=== PATIENT | female | born 1970 | race Caucasian/White ===

== ENCOUNTER 2018-01-10 15:09 | Inpatient (IN) | payer OTHER ==
[2018-01-10] MEDS: SOD CHLORIDE 0.9% 1,000 ML IV (17:34)
[2018-01-10] MEDS: ONDANSETRON 4 MG INJ IV (17:34)
[2018-01-10] MEDS: KETOROLAC 15 MG INJ IV (17:34)
[2018-01-10 18:06] LABS: ADD MAN DIFF? NO
[2018-01-10 18:11] LABS: WHITE BLOOD COUNT 10.9 10^3/ul (4.8-10.8)
[2018-01-10 18:11] LABS: BASOPHIL # 0.1 10^3/ul (0.0-0.1); BASOPHILS % 0.6 % (0.0-2.0); EOSINOPHILS % 0.1 % (0.0-7.0); HEMATOCRIT 46.8 % (37.0-47.0); HEMOGLOBIN 15.6 g/dl (12.0-16.0); LYMPHOCYTES # 0.7 10^3/ul (0.8-2.9); LYMPHOCYTES % 6.3 % (15.0-51.0); MEAN CORPUSCULAR HEMOGLOBIN 37.3 pg (29.0-33.0); MEAN CORPUSCULAR HGB CONC 33.3 g/dl (32.0-37.0); MEAN PLATELET VOLUME 10.3 fl (7.4-10.4); MONOCYTE # 0.7 10^3/ul (0.3-0.9); MONOCYTES % 6.4 % (0.0-11.0); NEUTROPHILS % 82.2 % (39.0-77.0); NUCLEATED RED BLOOD CELLS% 0.4 /100WBC (0.0-0.0); PLATELET COUNT 232 10^3/UL (140-415); RED BLOOD COUNT 4.18 10^6/ul (4.20-5.40); RED CELL DISTRIBUTION WIDTH 12.5 % (11.5-14.5)
[2018-01-10 18:30] LABS: INR 1.05; PROTIME 13.8 Sec (11.9-14.9); PT RATIO 1.1
[2018-01-10 18:31] LABS: ADD UMIC YES; UR ASCORBIC ACID NEGATIVE (NEGATIVE); UR BILIRUBIN (Dip) NEGATIVE (NEGATIVE); UR BLOOD (Dip) 1+ mg/dL (NEGATIVE); UR CLARITY CLEAR (CLEAR); UR COLOR YELLOW (YELLOW); UR GLUCOSE (Dip) NEGATIVE (NEGATIVE); UR HYALINE CAST FEW /HPF (NONE SEEN); UR KETONES (Dip) 2+ mg/dL (NEGATIVE); UR LEUKOCYTE ESTERASE (Dip) NEGATIVE Leu/ul (NEGATIVE); UR NITRITE (Dip) NEGATIVE (NEGATIVE); UR RBC 0 /HPF (0-5); UR SPECIFIC GRAVITY (Dip) 1.014 (1.003-1.030); UR TOTAL PROTEIN (Dip) 2+ mg/dl (NEGATIVE); UR UROBILINOGEN (Dip) NEGATIVE (NEGATIVE); UR WBC 1 /HPF (0-5)
[2018-01-10 19:42] LABS: ALANINE AMINOTRANSFERASE 70 IU/L (13-69); ALBUMIN 5.6 g/dl (3.3-4.9); ALBUMIN/GLOBULIN RATIO 1.86; ALKALINE PHOSPHATASE 52 IU/L (42-121); ANION GAP 41 (8-16); ASPARTATE AMINO TRANSFERASE 71 IU/L (15-46); BILIRUBIN,INDIRECT 0.6 mg/dl (0-1.1); BILIRUBIN,TOTAL 0.6 mg/dl (0.2-1.3); BLOOD UREA NITROGEN 9 mg/dl (7-20); CALCIUM 8.3 mg/dl (8.4-10.2); CHLORIDE 99 mmol/L (97-110); CREATININE 0.97 mg/dl (0.44-1.00); GLUCOSE 226 mg/dl (70-220); LIPASE 179 U/L (23-300); SODIUM 142 mmol/L (135-144); TOTAL PROTEIN 8.6 g/dl (6.1-8.1)
[2018-01-10 19:44] LABS: CARBON DIOXIDE 6 mmol/L (21-31)
[2018-01-10 19:45] LABS: POTASSIUM 4.3 mmol/L (3.5-5.1)
[2018-01-10] MEDS ORDERED: SODIUM CHLORIDE 23.4% 77 MEQ, POTASSIUM CHLORIDE 30 MEQ in DEXTROSE 10% 1,000 ML IV (19:53)
[2018-01-10] MEDS ORDERED: POTASSIUM CHLORIDE 30 MEQ in SOD CHLORIDE 0.9% 1,000 ML IV (19:53)
[2018-01-10 19:54] LABS: TROPONIN-I < 0.010 ng/ml (0.000-0.120)
[2018-01-10] MEDS ORDERED: DEXTROSE 50% 50 ML SYRINGE IV (20:00)
[2018-01-10 21:35] LABS: MODE ROOM AIR; MetHgb Venous 0.2 %; Sample Type Blood venous; Site VENOUS LINE; Venous COHb 0.3 %; Venous Oxygen Sat 64.3 mmHG (55.0-75.0); Venous Total Hemglobin 14.9 g/dl
[2018-01-10 21:47] LABS: LACTIC ACID 2.1 mmol/L (0.5-2.0)
[2018-01-10] MEDS: INSULIN REGULAR, HUMAN 100 UNIT in SOD CHLORIDE 0.9% 100 ML IV (22:04)
[2018-01-10] MEDS: SODIUM CHLORIDE 23.4% 77 MEQ, POTASSIUM CHLORIDE 30 MEQ in DEXTROSE 10% 1,000 ML IV (22:05)
[2018-01-10] MEDS: POTASSIUM CHLORIDE 30 MEQ in SOD CHLORIDE 0.9% 1,000 ML IV (22:05)
[2018-01-10] MEDS: SODIUM CHLORIDE 0.9% 1L BAG IV* (22:06)
[2018-01-10 22:36] LABS: ANION GAP 38 (8-16); BLOOD UREA NITROGEN 10 mg/dl (7-20); CALCIUM 8.5 mg/dl (8.4-10.2); CHLORIDE 100 mmol/L (97-110); CREATININE 0.96 mg/dl (0.44-1.00); GLUCOSE 194 mg/dl (70-220); MAGNESIUM 1.7 mg/dl (1.7-2.5); PHOSPHORUS 4.3 mg/dl (2.5-4.9); POTASSIUM 3.8 mmol/L (3.5-5.1); SODIUM 141 mmol/L (135-144)
[2018-01-10 22:38] LABS: CARBON DIOXIDE 7 mmol/L (21-31)
[2018-01-10 22:49] LABS: ACETAMINOPHEN < 10.0 ug/ml (10.0-30.0)
[2018-01-10 22:49] LABS: ETHANOL < 10.0 mg/dl; SALICYLATE < 1.0 mg/dl (5.0-30.0)
[2018-01-10] MEDS: CEFTRIAXONE 1 GM/50 ML (PMX) 50 ML IVPB (23:53)
[2018-01-11 00:24] LABS: ANION GAP 31 (8-16); BLOOD UREA NITROGEN 10 mg/dl (7-20); CALCIUM 8.1 mg/dl (8.4-10.2); CARBON DIOXIDE 11 mmol/L (21-31); CHLORIDE 101 mmol/L (97-110); CREATININE 0.92 mg/dl (0.44-1.00); GLUCOSE 266 mg/dl (70-220); MAGNESIUM 1.6 mg/dl (1.7-2.5); PHOSPHORUS 2.8 mg/dl (2.5-4.9); POTASSIUM 3.7 mmol/L (3.5-5.1); SODIUM 139 mmol/L (135-144)
[2018-01-11] MEDS: ONDANSETRON 4 MG INJ IV ×3 (00:24→13:39)
[2018-01-11 01:23] LABS: MODE ROOM AIR; MetHgb Venous 0.3 %; Sample Type Blood venous; Site VENOUS LINE; Venous COHb 0.3 %; Venous Fraction OxyHgb 45.2 %; Venous Oxygen Sat 45.5 mmHG (55.0-75.0); Venous Total Hemglobin 13.3 g/dl
[2018-01-11] MEDS ORDERED: POTASSIUM CHLORIDE 30 MEQ in SOD CHLORIDE 0.9% 1,000 ML IV ×2 (01:26→04:08)
[2018-01-11] MEDS ORDERED: SODIUM CHLORIDE 23.4% 77 MEQ, POTASSIUM CHLORIDE 40 MEQ in DEXTROSE 10% 1,000 ML IV (01:26)
[2018-01-11] MEDS: DEXTROSE 5%-0.45% NACL 1,000 ML IV (01:26)
[2018-01-11] MEDS ORDERED: SODIUM CHLORIDE 23.4% 77 MEQ, POTASSIUM CHLORIDE 30 MEQ in DEXTROSE 10% 1,000 ML IV (01:26)
[2018-01-11] MEDS ORDERED: SOD CHLORIDE 0.9% 1,000 ML IV (01:26)
[2018-01-11] MEDS ORDERED: SODIUM CHLORIDE 23.4% 77 MEQ in DEXTROSE 10% 1,000 ML IV (01:26)
[2018-01-11] MEDS ORDERED: POTASSIUM CHLORIDE 40 MEQ in SOD CHLORIDE 0.9% 1,000 ML IV (01:26)
[2018-01-11] MEDS ORDERED: INSULIN REGULAR, HUMAN 100 UNIT in SOD CHLORIDE 0.9% 100 ML IV (01:30)
[2018-01-11] MEDS ORDERED: ACETAMINOPHEN 650MG/20.3ML CUP PO (01:30)
[2018-01-11] MEDS ORDERED: ALBUTEROL/IPRATROPIUM (NEB) 3 ML AMP NEB (01:30)
[2018-01-11] MEDS ORDERED: DEXTROSE 50% 50 ML SYRINGE IV ×2 (01:30)
[2018-01-11] MEDS ORDERED: HYDROCODONE/APAP (5/325) TAB PO (01:30)
[2018-01-11] MEDS: ACCU-CHEK XX ×9 (01:30→10:46)
[2018-01-11 01:43] LABS: AMPHETAMINE/METHAMPHETAMINE Negative (NEGATIVE); BARBITURATES Negative (NEGATIVE); BENZODIAZEPINES Negative (NEGATIVE); CANNABINOIDS Negative (NEGATIVE); COCAINE Negative (NEGATIVE); OPIATES Negative (NEGATIVE)
[2018-01-11] MEDS: SODIUM CHLORIDE 23.4% 77 MEQ, POTASSIUM CHLORIDE 30 MEQ in DEXTROSE 10% 1,000 ML IV ×2 (03:42→10:36)
[2018-01-11 05:12] LABS: ADD MAN DIFF? NO
[2018-01-11 05:21] LABS: BASOPHILS % 0.2 % (0.0-2.0); HEMATOCRIT 31.6 % (37.0-47.0); HEMOGLOBIN 11.1 g/dl (12.0-16.0); LYMPHOCYTES # 0.7 10^3/ul (0.8-2.9); LYMPHOCYTES % 11.6 % (15.0-51.0); MEAN CORPUSCULAR HEMOGLOBIN 37.1 pg (29.0-33.0); MEAN CORPUSCULAR HGB CONC 35.1 g/dl (32.0-37.0); MEAN CORPUSCULAR VOLUME 105.7 fl (82.0-101.0); MONOCYTE # 0.8 10^3/ul (0.3-0.9); NEUTROPHIL # 4.4 10^3/ul (1.6-7.5); NEUTROPHILS % 73.2 % (39.0-77.0); PLATELET COUNT 133 10^3/UL (140-415); RED BLOOD COUNT 2.99 10^6/ul (4.20-5.40); RED CELL DISTRIBUTION WIDTH 12.4 % (11.5-14.5)
[2018-01-11 05:32] LABS: HEMOGLOBIN A1C 4.7 % (0-5.9)
[2018-01-11] MEDS: POTASSIUM CHLORIDE 30 MEQ in SOD CHLORIDE 0.9% 1,000 ML IV (05:46)
[2018-01-11 05:59] LABS: ALANINE AMINOTRANSFERASE 55 IU/L (13-69); ALKALINE PHOSPHATASE 35 IU/L (42-121); ANION GAP 17 (8-16); ASPARTATE AMINO TRANSFERASE 49 IU/L (15-46); BILIRUBIN,INDIRECT 0.4 mg/dl (0-1.1); BILIRUBIN,TOTAL 0.4 mg/dl (0.2-1.3); BLOOD UREA NITROGEN 9 mg/dl (7-20); CALCIUM 7.8 mg/dl (8.4-10.2); CARBON DIOXIDE 17 mmol/L (21-31); CHLORIDE 108 mmol/L (97-110); CREATININE 0.71 mg/dl (0.44-1.00); GLUCOSE 240 mg/dl (70-220); POTASSIUM 3.5 mmol/L (3.5-5.1); SODIUM 138 mmol/L (135-144); TOTAL PROTEIN 6.5 g/dl (6.1-8.1)
[2018-01-11 06:14] LABS: MAGNESIUM 1.4 mg/dl (1.7-2.5)
[2018-01-11 06:15] LABS: PHOSPHORUS < 0.5 mg/dl (2.5-4.9)
[2018-01-11 08:24] LABS: ANION GAP 13 (8-16); BLOOD UREA NITROGEN 9 mg/dl (7-20); CARBON DIOXIDE 20 mmol/L (21-31); CHLORIDE 110 mmol/L (97-110); CREATININE 0.67 mg/dl (0.44-1.00); GLUCOSE 248 mg/dl (70-220); MAGNESIUM 1.4 mg/dl (1.7-2.5); PHOSPHORUS < 0.5 mg/dl (2.5-4.9); POTASSIUM 3.6 mmol/L (3.5-5.1); SODIUM 139 mmol/L (135-144)
[2018-01-11] MEDS: POTASSIUM CHLORIDE 40 MEQ in SOD CHLORIDE 0.9% 1,000 ML IV (08:48)
[2018-01-11] MEDS: FAMOTIDINE 20 MG INJ IV ×2 (08:48→20:50)
[2018-01-11 09:37] LABS: MODE ROOM AIR; MetHgb Venous 0.3 %; Sample Type Blood venous; Site VENOUS LINE; Venous COHb 0.5 %; Venous Oxygen Sat 85.7 mmHG (55.0-75.0); Venous Total Hemglobin 11.9 g/dl
[2018-01-11] MEDS: SOD CHLORIDE 0.9% 1,000 ML IV ×3 (10:46→19:51)
[2018-01-11] MEDS: INSULIN GLARGINE [LANTus] (100 UNITS/ML) SYG SC ×2 (10:49→13:14)
[2018-01-11] MEDS: SODIUM PHOSPHATE 30 MMOL in SOD CHLORIDE 0.9% 250 ML IVPB (11:03)
[2018-01-11] MEDS: INSULIN ASPART [NOVOLOG] 3 ML PEN SC ×5 (11:30→20:39)
[2018-01-11 11:38] LABS: LACTIC ACID 2.5 mmol/L (0.5-2.0)
[2018-01-11] MEDS: DEXTROSE 50% 50 ML SYRINGE IV (12:41)
[2018-01-11] MEDS: MAGNESIUM SULFATE 2 GM/50 ML 50 ML IVPB (13:39)
[2018-01-11] MEDS: POTASSIUM PHOSPHATE 40 MEQ in SOD CHLORIDE 0.9% 250 ML IVPB (15:31)
[2018-01-11 16:54] LABS: ANION GAP 14 (8-16); BLOOD UREA NITROGEN 6 mg/dl (7-20); CALCIUM 7.7 mg/dl (8.4-10.2); CARBON DIOXIDE 19 mmol/L (21-31); CHLORIDE 109 mmol/L (97-110); CREATININE 0.55 mg/dl (0.44-1.00); GLUCOSE 99 mg/dl (70-220); SODIUM 139 mmol/L (135-144)
[2018-01-11] MEDS ORDERED: POTASSIUM CHLORIDE (SR) 20 MEQ TAB PO (17:18)
[2018-01-11] MEDS: POTASSIUM CHLORIDE 20 MEQ POWDER FOR ORAL SOLN PO (19:50)
[2018-01-11 21:24] LABS: MAGNESIUM 1.8 mg/dl (1.7-2.5)
[2018-01-11 21:24] LABS: PHOSPHORUS 3.6 mg/dl (2.5-4.9)
[2018-01-11 23:22] LABS: LACTIC ACID 1.1 mmol/L (0.5-2.0)
[2018-01-11 23:25] LABS: ANION GAP 12 (8-16); BLOOD UREA NITROGEN 5 mg/dl (7-20); CALCIUM 7.9 mg/dl (8.4-10.2); CARBON DIOXIDE 24 mmol/L (21-31); CHLORIDE 109 mmol/L (97-110); CREATININE 0.53 mg/dl (0.44-1.00); GLUCOSE 100 mg/dl (70-220); MAGNESIUM 1.8 mg/dl (1.7-2.5); POTASSIUM 3.2 mmol/L (3.5-5.1); SODIUM 142 mmol/L (135-144)
[2018-01-12] MEDS: ACCU-CHEK XX (02:00)
[2018-01-12] MEDS ORDERED: ACCU-CHEK XX ×2 (02:00)
[2018-01-12] MEDS: SOD CHLORIDE 0.9% 1,000 ML IV (05:21)
[2018-01-12 05:57] LABS: MAGNESIUM 1.7 mg/dl (1.7-2.5)
[2018-01-12 05:57] LABS: PHOSPHORUS 2.5 mg/dl (2.5-4.9)
[2018-01-12] MEDS: INSULIN ASPART [NOVOLOG] 3 ML PEN SC ×4 (07:50→12:30)
[2018-01-12] MEDS: INSULIN GLARGINE [LANTus] (100 UNITS/ML) SYG SC (08:00)
[2018-01-12] MEDS ORDERED: INSULIN GLARGINE [LANTus] (100 UNITS/ML) SYG SC (08:00)
[2018-01-12] MEDS: FAMOTIDINE 20 MG INJ IV (08:24)
[2018-01-12] MEDS ORDERED: POTASSIUM CHLORIDE (SR) 20 MEQ TAB PO (11:21)
[2018-01-12] MEDS: POTASSIUM CHLORIDE 20 MEQ POWDER FOR ORAL SOLN PO (13:47)
== END 2018-01-12 14:30 | disposition home or self-care (01) | DRG 641 ==
LOC: E/R 15:09 → ICU 01-11 00:19 → MS1 01-11 19:06
PROC: 4A133R1 Monitoring of Arterial Saturation, Peripheral, Percutaneous Approach (ICD-10-PCS; principal; 2018-01-11)
DX: E87.2 Acidosis (principal); E86.0 Dehydration
CPT/HCPCS: 36415; 71045; 80048; 80053; 80307; 81001; 81025; 82803; 82962; 83036; 83605; 83690; 83735; 84100; 84484; 85025; 85610; 87040; 87081; 93005; 96374; 96375; 99291-25

== ENCOUNTER 2018-03-09 21:05 | Inpatient (IN) | payer OTHER ==
[2018-03-09] MEDS: IOHEXOL 14.3 MG(I)/ML (ADULT) BTL PO (21:30)
[2018-03-09 21:59] LABS: ADD MAN DIFF? NO
[2018-03-09] MEDS: SOD CHLORIDE 0.9% 1,000 ML IV (21:59)
[2018-03-09] MEDS: ONDANSETRON 4 MG INJ IV (22:00)
[2018-03-09] MEDS: morphine 4 MG/ML VIAL IV (22:08)
[2018-03-09 22:36] LABS: BASOPHILS % 0.4 % (0.0-2.0); EOSINOPHILS # 0.1 10^3/ul (0.0-0.5); EOSINOPHILS % 0.5 % (0.0-7.0); HEMATOCRIT 37.7 % (37.0-47.0); HEMOGLOBIN 12.8 g/dl (12.0-16.0); LYMPHOCYTES # 2.1 10^3/ul (0.8-2.9); LYMPHOCYTES % 22.8 % (15.0-51.0); MEAN CORPUSCULAR HEMOGLOBIN 34.2 pg (29.0-33.0); MEAN CORPUSCULAR VOLUME 100.8 fl (82.0-101.0); MEAN PLATELET VOLUME 11.7 fl (7.4-10.4); MONOCYTE # 0.6 10^3/ul (0.3-0.9); MONOCYTES % 6.4 % (0.0-11.0); NEUTROPHIL # 6.5 10^3/ul (1.6-7.5); NEUTROPHILS % 69.5 % (39.0-77.0); PLATELET COUNT 171 10^3/UL (140-415); RED BLOOD COUNT 3.74 10^6/ul (4.20-5.40); RED CELL DISTRIBUTION WIDTH 11.5 % (11.5-14.5)
[2018-03-09 22:36] LABS: WHITE BLOOD COUNT 9.4 10^3/ul (4.8-10.8)
[2018-03-09 23:00] LABS: ALANINE AMINOTRANSFERASE 35 IU/L (13-69); ALBUMIN 3.8 g/dl (3.3-4.9); ALBUMIN/GLOBULIN RATIO 1.08; ALKALINE PHOSPHATASE 50 IU/L (42-121); ANION GAP 17 (8-16); ASPARTATE AMINO TRANSFERASE 41 IU/L (15-46); BILIRUBIN,INDIRECT 0.6 mg/dl (0-1.1); BILIRUBIN,TOTAL 0.6 mg/dl (0.2-1.3); BLOOD UREA NITROGEN 10 mg/dl (7-20); CARBON DIOXIDE 23 mmol/L (21-31); CHLORIDE 101 mmol/L (97-110); CREATININE 0.63 mg/dl (0.44-1.00); GLUCOSE 105 mg/dl (70-220); LIPASE 114 U/L (23-300); POTASSIUM 3.7 mmol/L (3.5-5.1); SODIUM 137 mmol/L (135-144); TOTAL PROTEIN 7.3 g/dl (6.1-8.1)
[2018-03-09 23:27] LABS: ADD UMIC NO; UR ASCORBIC ACID 40 mg/dL (NEGATIVE); UR BILIRUBIN (Dip) NEGATIVE (NEGATIVE); UR BLOOD (Dip) NEGATIVE (NEGATIVE); UR CLARITY CLEAR (CLEAR); UR COLOR YELLOW (YELLOW); UR GLUCOSE (Dip) NEGATIVE (NEGATIVE); UR KETONES (Dip) 1+ mg/dL (NEGATIVE); UR LEUKOCYTE ESTERASE (Dip) NEGATIVE Leu/ul (NEGATIVE); UR NITRITE (Dip) NEGATIVE (NEGATIVE); UR SPECIFIC GRAVITY (Dip) 1.016 (1.003-1.030); UR TOTAL PROTEIN (Dip) NEGATIVE (NEGATIVE); UR UROBILINOGEN (Dip) NEGATIVE (NEGATIVE)
[2018-03-10] MEDS: IOHEXOL 300MG/ML 150 ML BTL (01:08)
[2018-03-10] MEDS: SOD CHLORIDE 0.9% 100 ML (01:08)
[2018-03-10] MEDS: ONDANSETRON 4 MG INJ IV (04:19)
[2018-03-10] MEDS: morphine 2 MG INJ IV ×2 (04:20→08:08)
[2018-03-10] MEDS: DEXTROSE 5%-0.45% NACL 1,000 ML IV (04:25)
[2018-03-10 05:50] LABS: ADD MAN DIFF? NO
[2018-03-10 05:55] LABS: BASOPHILS % 0.3 % (0.0-2.0); EOSINOPHILS % 0.3 % (0.0-7.0); HEMATOCRIT 36.5 % (37.0-47.0); HEMOGLOBIN 12.5 g/dl (12.0-16.0); LYMPHOCYTES # 1.9 10^3/ul (0.8-2.9); LYMPHOCYTES % 28.5 % (15.0-51.0); MEAN CORPUSCULAR HEMOGLOBIN 34.2 pg (29.0-33.0); MEAN CORPUSCULAR HGB CONC 34.2 g/dl (32.0-37.0); MONOCYTE # 0.4 10^3/ul (0.3-0.9); MONOCYTES % 6.8 % (0.0-11.0); NEUTROPHIL # 4.2 10^3/ul (1.6-7.5); NEUTROPHILS % 63.9 % (39.0-77.0); PLATELET COUNT 181 10^3/UL (140-415); RED BLOOD COUNT 3.65 10^6/ul (4.20-5.40); RED CELL DISTRIBUTION WIDTH 11.5 % (11.5-14.5)
[2018-03-10 05:55] LABS: WHITE BLOOD COUNT 6.5 10^3/ul (4.8-10.8)
[2018-03-10 06:37] LABS: ALANINE AMINOTRANSFERASE 32 IU/L (13-69); ALBUMIN 3.5 g/dl (3.3-4.9); ALBUMIN/GLOBULIN RATIO 1.09; ALKALINE PHOSPHATASE 45 IU/L (42-121); ANION GAP 14 (8-16); ASPARTATE AMINO TRANSFERASE 36 IU/L (15-46); BILIRUBIN,INDIRECT 0.8 mg/dl (0-1.1); BILIRUBIN,TOTAL 0.8 mg/dl (0.2-1.3); BLOOD UREA NITROGEN 7 mg/dl (7-20); CALCIUM 9.7 mg/dl (8.4-10.2); CARBON DIOXIDE 24 mmol/L (21-31); CHLORIDE 106 mmol/L (97-110); CREATININE 0.61 mg/dl (0.44-1.00); GLUCOSE 110 mg/dl (70-220); SODIUM 140 mmol/L (135-144); TOTAL PROTEIN 6.7 g/dl (6.1-8.1)
== END 2018-03-10 08:45 | disposition left against medical advice (07) | DRG 395 ==
LOC: E/R 21:05 → 2NE 03-10 02:11
DX: K40.30 Unilateral inguinal hernia, with obstruction, without gangrene, not specified as recurrent (principal); F17.200 Nicotine dependence, unspecified, uncomplicated; R82.4 Acetonuria
CPT/HCPCS: 74177; 80053; 81003; 81025; 82962; 83690; 85025; 96374; 96375; 99285-25